=== PATIENT | male | born 1995 | race Caucasian/White ===

== ENCOUNTER 2020-01-23 02:54 | Emergency (ER) | payer OTHER ==
[~2020-01-23] VITALS: Ht 180.3 cm; Wt 104.3 kg
[2020-01-23 02:55] VITALS: BP 153/85
== END 2020-01-23 03:10 ==
LOC: ER 02:54
DX: Z02.89 Encounter for other administrative examinations (principal)

== ENCOUNTER 2020-12-13 21:34 | Emergency (ER) | payer OTHER ==
[~2020-12-13] VITALS: Ht 180.3 cm; Wt 81.6 kg
[2020-12-13 21:51] VITALS: BP 132/80
[2020-12-13] MEDS ORDERED: HYDR28.32 TP (22:15)
[2020-12-13] MEDS ORDERED: CLOT15CR27 TP (22:15)
== END 2020-12-13 22:50 | disposition home or self-care (01) ==
LOC: ER 21:37
DX: N48.1 Balanitis (principal); Z20.2 Contact with and (suspected) exposure to infections with a predominantly sexual mode of transmission
CPT/HCPCS: 36415; 86780; 87491; 87591